=== PATIENT | female | born 1960 | race Hispanic/Latino ===

== ENCOUNTER 2018-06-30 19:36 | Emergency (ER) | payer OTHER ==
[2018-06-30 19:42] VITALS: BMI 22.2
[2018-06-30] MEDS ORDERED: Morphine 4 mg/ml ISec IVP STA (19:43)
[2018-06-30] MEDS ORDERED: TDAP Vaccine 0.5 mL Syr IM ONE (19:43)
[2018-06-30] MEDS ORDERED: Morphine 4 mg/ml ISec IM STA (19:43)
[2018-06-30] MEDS ORDERED: Morphine 4 mg/ml ISec ONE (19:45)
[2018-06-30] MEDS ORDERED: ceFAZolin 1 gm in NS 1 GM/100 ML BAG IVPB STA (19:49)
--- NOTE | 2018-06-30 19:55 | ED PDOC ---
Arrival/HPI <JoselineTom - Last Filed: 06/30/18 22:47> - History of Present Illness Narrative History of Present Illness (Text): 06/30/18 19:52 58 yo F reports injuring her right third digit when a heavy door slammed on the tip of her finger and she sustained a laceration. Reports that the laceration is deep and involving the nail. Otherwise: (-) other injury, (-) numbness. <Steph Gold PA-C - Last Filed: 06/30/18 23:06> - General Chief Complaint: Finger,Hand,&Wrist Time Seen by Provider: 06/30/18 19:45 Past Medical History - Psychiatric Hx Substance Use: No <Steph Gold PA-C - Last Filed: 06/30/18 23:06> Family/Social History Family/Social History: No Known Family HX Smoking Status: Light Smoker < 10 Cigarettes Daily Hx Alcohol Use: Yes Frequency of alcohol use: Few days per week Hx Substance Use: No <Steph Gold PA-C - Last Filed: 06/30/18 23:06> Allergies/Home Meds <Tom Trevizo - Last Filed: 06/30/18 22:47> <Steph Gold PA-C - Last Filed: 06/30/18 23:06> Allergies/Adverse Reactions: Allergies No Known Allergies Allergy (Verified 06/30/18 19:42) Review of Systems - Review of Systems Constitutional: absent: Fatigue, Fevers Musculoskeletal: Arthralgias. absent: Back Pain, Neck Pain Skin: Laceration. absent: Rash, Skin Lesions Neurological: absent: Headache, Dizziness <Steph Gold PA-C - Last Filed: 06/30/18 23:06> Physical Exam - Physical Exam Narrative Physical Exam (Text): 06/30/18 19:53 GENERAL APPEARANCE: Patient is awake, alert, oriented x 3, is anxious, in moderate painful distress. SKIN: Warm, (-) rash, (-) lesions. UPPER EXTREMITY: (+) deep laceration nearly circumferential laceration above the R 3rd PIP involving the nail, (-) FB noted in the wound, (-) swelling, (-) ecchymosis; (-) crepitus, (-) deformity. Distal tendon function not intact, (- ) distal neurovascular deficit, 2 point discrimination. Remainder of hand, digits and wrist: (-) injury. <Steph Gold PA-C - Last Filed: 06/30/18 23:06> Medical Decision Making - Lab Interpretations Lab Results: 06/30/18 20:15 06/30/18 20:15 Lab Results 06/30/18 20:15: Sodium 143, Potassium 4.4, Chloride 107, Carbon Dioxide 25, Anion Gap 15, BUN 17, Creatinine 0.6 L, Est GFR ( Amer) > 60, Est GFR (Non-Af Amer) > 60, Random Glucose 93, Calcium 9.9, Total Bilirubin 0.2, AST 88 H, ALT 54, Alkaline Phosphatase 96, Total Protein 7.9, Albumin 4.9 H, Globulin 3.0, Albumin/Globulin Ratio 1.7 06/30/18 20:15: WBC 7.7, RBC 4.41, Hgb 13.0, Hct 38.8, MCV 88.0, MCH 29.5, MCHC 33.5, RDW 13.4, Plt Count 296, MPV 9.9, Gran % 43.3 L, Lymph % (Auto) 46.6 H, Mcmullen % (Auto) 7.0 H, Eos % (Auto) 2.6, Baso % (Auto) 0.5, Gran # 3.33, Lymph # (Auto) 3.6 H, Mcmullen # (Auto) 0.5, Eos # (Auto) 0.2, Baso # (Auto) 0.04 - RAD Interpretation Radiology Orders: 06/30/18 19:43 HAND RIGHT 3 VIEWS [RAD] Stat 06/30/18 22:08 HAND RIGHT 3 VIEWS [RAD] Stat - Medication Orders Current Medication Orders: Discontinued Medications Cefazolin Sodium (Ancef 1gm In Ns) 1 gm in 100 mls @ 100 mls/hr IVPB STAT STA Stop: 06/30/18 20:48 Last Admin: 06/30/18 20:00 Dose: 100 mls/hr eMAR Start Stop Document 06/30/18 20:00 JOL (Rec: 06/30/18 20:22 JOL [id number]) Intravenous Solution Start Date 06/30/18 Start Time 20:00 End Date 06/30/18 End time 21:00 Total Infusion Time 60 Ketorolac Tromethamine (Toradol) 30 mg IVP STAT STA Stop: 06/30/18 20:05 Last Admin: 06/30/18 20:22 Dose: 30 mg MAR Pain Assessment Document 06/30/18 20:22 JOL (Rec: 06/30/18 20:22 [id number] Pain Reassessment Is this a pain reassessment? Yes Sleep Is patient sleeping during reassessment? No Presence of Pain Presence of Pain Yes Pain Scale Used Protocol: [facility] Pain Scale Used Numeric Location Left, Right or Bilateral Right Pain Location Body Site Middle Finger Description Intensity of Pain at present 7 IVP Administration Document 06/30/18 20:22 JOL (Rec: 06/30/18 20:22 [id number]) Charges for Administration # of IVP Administrations 1 Morphine Sulfate (Morphine) 4 mg IVP STAT STA Stop: 06/30/18 19:44 Morphine Sulfate (Morphine) 4 mg IM STAT STA Stop: 06/30/18 19:44 Last Admin: 06/30/18 19:50 Dose: 4 mg MAR Pain Assessment Document 06/30/18 19:50 JOL (Rec: 06/30/18 20:21 [id number]) Pain Reassessment Is this a pain reassessment? No Sleep Is patient sleeping during reassessment? No Presence of Pain Presence of Pain Yes Pain Scale Used Protocol: [facility] Pain Scale Used Numeric Location Left, Right or Bilateral Bilateral Pain Location Body Site Middle Finger Description Intensity of Pain at present 10 Pain Behavior Crying Restlessness Facial Grimacing Screaming Thrashing IM Administration Charges Document 06/30/18 19:50 JOL (Rec: 06/30/18 20:21 [id number]) Injection Site MAR Injection Site Left Deltoid Charges for Administration # of IM Administrations 1 Ondansetron HCl (Zofran Odt) 4 mg PO STAT STA Stop: 06/30/18 19:44 Tetanus/Reduced Diphtheria/Acell Pertussis (Boostrix Vaccine Inj) 0.5 ml IM .ONCE ONE Stop: 06/30/18 19:44 Last Admin: 06/30/18 20:10 Dose: 0.5 ml Immunization Registry Document 06/30/18 20:10 JOL (Rec: 06/30/18 20:19 JO [id number]) [facility]-Date provided 06/30/18 <Tom Trevizo - Last Filed: 06/30/18 22:47> ED Course and Treatment: 06/30/18 19:55 Plan : - morphine IM - zofran PO - labs - IV - ancef 1 g IV - XR R 3rd digit - tdap IM Patient is very anxious and in moderate amount of pain, given morphine 4 mg IM and zofran ODT PO. Labs, IV, XR ordered. Consult placed with plastics/hand Dr. Bolden. 20:10 Case d/w Dr. Bolden, he will come and evaluate the patient. Labs reviewed. XR R hand : +comminuted fracture of the distal 3rd phalanx, no dislocation, as read by PA. On re-evaluation, patient is resting comfortably in bed in no acute distress. XR results d/w the patient. Patient is requesting additional pain medication, given toradol IV. 22:00 Dr. Bolden is now at the bedside evaluating the patient and will repair the laceration. Post reduction XR ordered. Post reduction XR : successful reduction of distal phalanx fracture of 3rd digit. On reevaluation, patient remains awake alert and oriented 3 in no acute distress. Patient tolerated the procedure well, laceration repair was completed by Dr. Bolden at the bedside, states that the patient can follow up with him in 1 week. Advised to follow up with Dr. Bolden, as advised by him without fail. Advised to take medication as prescribed. Return to the emergency room at any time for any new or worsening symptoms. Patient states she fully agrees with and understands discharge instructions. States that hshe agrees with the plan and disposition. Verbalized and repeated discharge instructions and plan. I have given the patient opportunity to ask any additional questions. - RAD Interpretation Radiology Orders: 06/30/18 19:43 HAND RIGHT 3 VIEWS [RAD] Stat - Medication Orders Current Medication Orders: Cefazolin Sodium (Ancef 1gm In Ns) 1 gm in 100 mls @ 100 mls/hr IVPB STAT STA Stop: 06/30/18 20:48 Discontinued Medications Morphine Sulfate (Morphine) 4 mg IVP STAT STA Stop: 06/30/18 19:44 Morphine Sulfate (Morphine) 4 mg IM STAT STA Stop: 06/30/18 19:44 Ondansetron HCl (Zofran Odt) 4 mg PO STAT STA Stop: 06/30/18 19:44 Tetanus/Reduced Diphtheria/Acell Pertussis (Boostrix Vaccine Inj) 0.5 ml IM .ONCE ONE Stop: 06/30/18 19:44 <Steph Gold PA-C - Last Filed: 06/30/18 23:06> - PA / BEHAVIORAL PSYCHOLOGIST / Resident Statement LENCHO has reviewed & agrees with the documentation as recorded. LENCHO has examined the patient and agrees with the treatment plan. <Tom Trevizo - Last Filed: 06/30/18 22:47> - PA / BEHAVIORAL PSYCHOLOGIST / Resident Statement LENCHO has reviewed & agrees with the documentation as recorded. <Steph Gold PA-C - Last Filed: 06/30/18 23:06> Disposition/Present on Arrival <Tom Trevizo - Last Filed: 06/30/18 22:47> - Present on Arrival Any Indicators Present on Arrival: No History of DVT/PE: No History of Uncontrolled Diabetes: No Urinary Catheter: No History of Decub. Ulcer: No History Surgical Site Infection Following: None - Disposition Have Diagnosis and Disposition been Completed?: Yes Disposition Time: 22:30 Patient Plan: Discharge <Steph Gold PA-C - Last Filed: 06/30/18 23:06> - Disposition Diagnosis: Open fracture of finger of right hand Disposition: HOME/ ROUTINE Patient Problems: Current Active Problems Problem Status Onset Open fracture of finger of right hand Acute Condition: STABLE Discharge Instructions (ExitCare): Wound Care (DC), Laceration Repair With Stitches (DC), Finger Fracture (DC) Additional Instructions: Thank you for letting us take care of you today. You were treated for open fracture with laceration of the R 3rd digit. The emergency medical care you received today was directed at your acute symptoms. If you were prescribed any medication, please fill it and take as directed. It may take several days for your symptoms to resolve. Return to the Emergency Department if your symptoms w orsen, do not improve, or if you have any other problems. Please follow up with Dr. Bolden for re-evaluation and follow up as discussed with him. Bring any paperwork you were given at discharge with you along with any medications you are taking to your follow up visit. Our treatment cannot replace ongoing medical care by a primary care provider (PCP) outside of the emergency department. Thank you for allowing the [facility] team to be part of your care today. Prescriptions: Cefadroxil 500 mg PO BID #28 susp.recon Ibuprofen [Motrin Tab] 600 mg PO QID PRN #20 tab PRN Reason: Pain, Mild (1-3) oxyCODONE/Acetaminophen [Percocet 5/325 mg Tab] 1 ea PO TID PRN #15 tab PRN Reason: Pain, Moderate (4-7) Referrals: Tanner Bolden MD [Staff Provider] - Follow up with primary Forms: [employer] (Armenian), WORK NOTE
[2018-06-30 20:29] LABS: BASO # 0.04 K/mm3 (0.0-2.0); BASO % 0.5 % (0.0-3.0); EOS # 0.2 (0.0-0.7); EOS % 2.6 % (1.5-5.0); GRAN # 3.33 (1.4-6.5); GRAN % 43.3 % (50.0-68.0); LYMPH # 3.6 (1.2-3.4); LYMPH % 46.6 % (22.0-35.0); MEAN CORPUSCULAR HEMOGLOBIN 29.5 pg (25.0-35.0); MEAN CORPUSCULAR HGB CONC 33.5 g/dl (31.0-37.0); MEAN PLATELET VOLUME 9.9 fl (7.0-11.0); MONO # 0.5 (0.1-0.6); RBC 4.41 10^6/uL (3.5-6.1); RED CELL DISTRIBUTION WIDTH 13.4 % (11.5-14.5); WHITE BLOOD COUNT 7.7 10^3/uL (4.5-11.0)
[2018-06-30 20:36] LABS: ALB/GLOB RATIO 1.7 (1.1-1.8); ALBUMIN 4.9 g/dL (3.0-4.8); ALT/SGPT 54 U/L (7-56); AST/SGOT 88 U/L (14-36); BLOOD UREA NITROGEN 17 mg/dL (7-21); CALCIUM 9.9 mg/dL (8.4-10.5); GFR NON-AFRICAN AMERICAN > 60
[2018-06-30] MEDS ORDERED: Lidocaine PF 2% (5 ml) Inj (For Cardiac Arrhy) ONE (20:39)
[2018-06-30 23:18] VITALS: BP 127/68; PULSE 72; RESP 16; TEMP 98.7; O2SAT 100
--- NOTE | 2018-07-01 09:37 | RAD ---
PROCEDURE: Right Hand Radiographs. HISTORY: pain COMPARISON: None. FINDINGS: BONES: There is a comminuted displaced fracture of the tip of the 3rd distal phalanx JOINTS: Normal. No osteoarthritic changes. SOFT TISSUES: Normal. OTHER FINDINGS: None. IMPRESSION: There is a comminuted displaced fracture of the tip of the 3rd distal phalanx
--- NOTE | 2018-07-01 10:46 | RAD ---
PROCEDURE: Right Hand Radiographs. HISTORY: post reduction COMPARISON: None. FINDINGS: BONES: Comminuted fracture distal tuft 3rd digit distal phalanx. JOINTS: Normal. No osteoarthritic changes. SOFT TISSUES: Soft tissue swelling attests to the acuity of the fracture. No visualized radiopaque foreign body. OTHER FINDINGS: None. IMPRESSION: Approximate stability with respect to fracture/fracture fragments and soft tissue findings distal tuft fracture right 3rd digit.
--- NOTE | 2018-07-06 20:17 | CON ---
DATE: 06/30/2018 ER CONSULTATION SURGEON: Tanner Bolden MD. HISTORY OF PRESENT ILLNESS: This is a 58-year-old healthy right-hand dominant female who crushed her right middle finger in a door at home. She presented to the emergency room with an open fracture. X-ray done by the emergency room staff showed a comminuted right middle finger distal phalanx fracture, I came in as a hand surgeon system integration engineer. PHYSICAL EXAMINATION: EXTREMITIES: The patient's right middle finger had tenderness and pain to the distal phalanx. She is able t flex and extend the finger grossly, but is limited secondary pain and swelling. The other bones of the hand were nontender. There was some paraesthesia to the tip of the finger consistent with a crush injury. She had good cap refill to the tip of the finger. I reviewed the x-ray with the patient and her family that showed a significantly comminuted and displaced right middle finger distal phalanx fracture. I told them that in the emergency room after regional anesthesia, we irrigated the wound. I would remove the nail plate, fixed the nail bed and reduced the fracture. I warned them to accurately get a postop x-ray, this is a significant comminuted fracture, she may need to have pinning the distal phalanx either acutely or within in the next 2 weeks. I warned them that they may have abnormal nail growth, they could be nonunion, arthritis, malunion and need to get antibiotics for 2 weeks. This is the open fracture and this will be splinted for approximately 3 weeks and they may need to have some hand therapy afterwards. They agreed to everything and wished to proceed. I will now dictate a separate operative report. Tanner Bolden MD
--- NOTE | 2018-07-06 23:47 | OP ---
PROCEDURE DATE: 06/30/2018 SURGEON: Tanner Bolden MD PREOPERATIVE DIAGNOSES: As follows: 1. A 1.3-cm right middle finger laceration. 2. Open fracture, displaced, the right middle finger distal phalanx fracture. 3. Right middle finger nail bed laceration. 4. Crush injury to right middle finger. POSTOPERATIVE DIAGNOSES: 1. A 1.3-cm right middle finger laceration. 2. Open fracture, displaced, the right middle finger distal phalanx fracture. 3. Right middle finger nail bed laceration. 4. Crush injury to right middle finger. PROCEDURES PERFORMED: As follows: 1. Debridement of bone and soft tissue open fracture site at right middle finger distal phalanx. 2. Closed reduction with manipulation of right middle finger distal phalanx fracture. 3. Repair of right middle finger nail bed laceration. 4. Complex repair of 1.3-cm right middle finger laceration. ANESTHESIA: Regional: 1. Right middle finger radial digital nerve block. 2. Right middle finger ulnar digital nerve block. INDICATION FOR THE PROCEDURE: As follows: Please refer to my separately dictated ER consultation for history and physical. I forgot to mention in the history and physical, there is a 1.3-cm laceration on the dorsal aspect of the right middle finger with irregular and contused skin edges. DESCRIPTION OF PROCEDURE: As follows: Marcaine 0.5% was used in right middle finger radial and ulnar digital nerve block. After allowing sufficient time for the anesthetic to take effect, the would was thoroughly irrigated and soaked with normal saline and dilute Betadine for several minutes. The area was prepped and draped in the usual clean and sterile manner. A tourniquet was placed at the base of the right middle finger, which I removed at the end of the case. I started the operation by dissecting the remaining part of the nail bed, and then after doing this, I noticed that there was an open fracture of the right middle phalanx and distal phalanx bones. The finger was completely unstable. There was a 1.3-cm laceration. I had debrided the irregular skin edges and undermining to take the tension of the wound. I then closed the skin, 1.3-cm dorsal laceration and the edges of the skin with 4-0 chromic in an interrupted fashion. After doing this complex repair of the dorsal aspiration, I debrided some of the soft tissue and bone at the open fracture site of the right middle finger distal phalanx. I then performed a closed reduction with manipulation by putting the bone graft in place. I then debrided some of the soft tissue and nail bed that was nonviable. I then repaired the nail bed laceration of the sterile matrix of the right middle finger with 5-0 fast absorbing sutures in an interrupted fashion. After doing this, the wound edges were nicely aligned. I then used splint and placed a nail plate splint underneath the eponychium secured in place with 4-0 chromic sutures in an interrupted fashion. I then removed the tourniquet. I placed Xeroform dry sterile dressing, Bina wrap, and placed a DIP blocking finger splint. The patient tolerated the procedure well. Had a post-reduction x-ray, which showed grossly much improved reduction and alignment of the distal phalanx fracture. There was a piece of bone that was volarly displaced, but that was very small. I explained to the patient and her at this time, I will treat her with a splint and antibiotics for two weeks. We will get re-image her in a week and after we decide that we are going to to be done within the next two weeks. They understood this and elected to go home to which I agreed. The patient was then discharged from the emergency room in stable condition. Postop wound care, limitation of physical activities, the fact there will be scaring, the possibility of the abnormal nail growth, arthritis, nonunion, malunion, stiffness, need for therapy, possible need for future operations, and prolonged paraesthesia secondary to crush were discussed with the patient and family, and all questions were answered. The patient was told to follow up with me in few days. Tanner Bolden MD
== END 2018-06-30 23:19 | disposition home or self-care (01) ==
LOC: ED 19:36
DX: S67.192A Crushing injury of right middle finger, initial encounter (principal); S62.632B Displaced fracture of distal phalanx of right middle finger, initial encounter for open fracture; W23.0XXA Caught, crushed, jammed, or pinched between moving objects, initial encounter
CPT/HCPCS: 11012; 11760; 26755; 73130; 80053; 85025; 90471; 90715; 96365; 96372; 96375; 99285; J0690; J1885; J2270